=== PATIENT | female | born 1960 | race Caucasian/White ===

== ENCOUNTER 2024-06-11 08:04 | Day surgery (SDC) | payer BC ==
[2024-06-10 11:37] VITALS: BMI 27.3
[~2024-06-11 08:04] MED LIST: LACTATED RINGERS 1,000 ML IV SCH; LIDOCAINE 1% (10MG/ML) FOR IV START INTRADERMA PRN; ONDANSETRON 4 MG/2 ML VIAL IVP PRN
[2024-06-11] MEDS: IV FLUID CONTINUATION 1,000 ML IV ONE (08:52)
[2024-06-11 09:00] VITALS: RESP 16; TEMP 98.2
[2024-06-11] MEDS ORDERED: PROPOFOL 10 MG/ML 20 ML VIAL IV ONE (09:26)
--- NOTE | 2024-06-11 09:28 | P.GSHP ---
History of Present Illness H&P Date: 06/11/24 Chief Complaint: Colon cancer screening 63-year-old female here for colonoscopy. She has not had 1 previously. No bowel complaints. No family history of colon cancer. Past Medical History Past Medical History: Hypertension, Osteoarthritis (OA) History of Any Multi-Drug Resistant Organisms: None Reported Past Surgical History: Cholecystectomy Additional Past Surgical History / Comment(s): mindy feet procedures Past Anesthesia/Blood Transfusion Reactions: No Reported Reaction Additional Past Anesthesia/Blood Transfusion Reaction / Comment(s): no hx blood transfusion. unk family hx-pt adopted Smoking Status: Former smoker - Past Family History Daughter(s) Additional Family Medical History / Comment(s): tested positive for factor V leiden Mother History Unknown: Yes Additional Family Medical History / Comment(s): adopted Medications and Allergies Home Medications Medication Instructions Recorded Confirmed Type Escitalopram [Lexapro] 10 mg PO QAM 06/10/24 06/11/24 History lisinopriL [Lisinopril] 10 mg PO QAM 06/10/24 06/11/24 History Allergies Allergy/AdvReac Type Severity Reaction Status Date / Time ampicillin Allergy rapid Verified 06/11/24 09:02 heart rate, sweating Surgical - Exam Vital Signs Temp Pulse Resp BP Pulse Ox 98.2 F 78 16 118/71 94 L 06/11/24 08:58 06/11/24 08:58 06/11/24 08:58 06/11/24 08:58 06/11/24 08:58 Physical exam: General: Well-developed, well-nourished HEENT: Normocephalic, sclerae nonicteric Abdomen: Nontender, nondistended Extremities: No edema Neuro: Alert and oriented Assessment and Plan (1) Colon cancer screening Narrative/Plan: Will proceed with colonoscopy at this time. Current Visit: Yes Status: Acute Code(s): Z12.11 - ENCOUNTER FOR SCREENING FOR MALIGNANT NEOPLASM OF COLON SNOMED Code(s): 414704657
--- NOTE | 2024-06-11 09:48 | P.PCN ---
Date of Procedure: 06/11/24 Procedure(s) Performed: PREOPERATIVE DIAGNOSIS: Colon cancer screening POSTOPERATIVE DIAGNOSIS: Colon polyps, diverticulosis PROCEDURE: Colonoscopy with snare polypectomy ANESTHESIA: MAC SURGEON: John Almeida M.D. SPECIMENS: Polyps ENDOSCOPIC PROCEDURE: The patient was placed on the endoscopy table in the left decubitus position. The Olympus colonoscope was inserted into the anus and passed under direct visualization to the base of the cecum. The appendiceal orifice was visualized. From that point the scope was slowly withdrawn inspecting all surfaces carefully. There were no neoplastic inflammatory or polypoid lesions throughout the base of the cecum. On the valve itself there was a small polyp that was removed using the snare with cautery technique. In the mid ascending colon a small submucosal lipoma was noted. There was also a small polyp in the ascending colon that was removed using the snare with cautery technique. The transverse colon appeared normal. In the descending colon another small polyp was seen and removed in a similar fashion. The remainder of the descending sigmoid and rectum was normal. The patient had mild scattered diverticulosis. Digital rectal examination was normal. The patient was taken to the recovery room in stable condition per anesthesia guidelines. RECOMMENDATIONS: Await biopsy results. Tentatively plan repeat colonoscopy 5 years.
[2024-06-11 10:12] VITALS: BP 106/70; PULSE 65
== END 2024-06-11 10:30 | disposition home or self-care (01) ==
LOC: ORWHC2ENDO 08:04 → MERGE 08:25 → ORWHC2ENDO 10:30
PROVIDERS: ATTEND Surgery
DX: Z12.11 Encounter for screening for malignant neoplasm of colon (principal); D12.2 Benign neoplasm of ascending colon; K63.5 Polyp of colon; K57.30 Diverticulosis of large intestine without perforation or abscess without bleeding; D17.5 Benign lipomatous neoplasm of intra-abdominal organs; I10 Essential (primary) hypertension; Z79.899 Other long term (current) drug therapy; Z87.891 Personal history of nicotine dependence; Z88.0 Allergy status to penicillin
CPT/HCPCS: 45385; 88305; J2704